=== PATIENT | male | born 2000 | race Two or more races ===

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

== ENCOUNTER → 2021-08-09 | Emergency (ER) | payer BC, MEDICAID ==
[~2021-08-09] VITALS: Ht 177.8 cm; Wt 63.6 kg
[~2021-08-09] MED LIST changes: +BUSP10TA3 PO; +CITA20TA28 PO; +LORazepam 1 MG tablet PO ONE; -ONDA4TAB6 PO
[2021-08-09 06:50] VITALS: BP 118/76
== END | disposition home or self-care (01) ==
LOC: ER 04:17
DX: F41.9 Anxiety disorder, unspecified (principal); F32.A Depression, unspecified; F12.10 Cannabis abuse, uncomplicated; Z79.899 Other long term (current) drug therapy
CPT/HCPCS: 71045; 99283

== ENCOUNTER 2021-08-10 19:23 | Emergency (ER) | payer MEDICAID ==
[~2021-08-10] VITALS: Ht 180.3 cm; Wt 63.6 kg
[~2021-08-10 19:23] MED LIST changes: -LORazepam 1 MG tablet PO ONE
[2021-08-10 19:26] VITALS: BP 144/82
[2021-08-10] MEDS ORDERED: LORazepam 2 mg/ml vial IM ONE (20:40)
== END 2021-08-10 21:22 | disposition home or self-care (01) ==
LOC: ER 19:24
DX: F41.9 Anxiety disorder, unspecified (principal); F32.A Depression, unspecified; F12.90 Cannabis use, unspecified, uncomplicated; Z72.89 Other problems related to lifestyle; Z79.899 Other long term (current) drug therapy
CPT/HCPCS: 96372; 99283; J2060

== ENCOUNTER 2021-08-14 11:40 | Inpatient (IN) | payer MEDICAID ==
[~2021-08-14] VITALS: Ht 177.8 cm; Wt 60.6 kg
[2021-08-14] MEDS ORDERED: acetaminophen 325mg tablet PO PRN (12:25)
[2021-08-14] MEDS ORDERED: mag hydrox/Alum hydrox/simeth 30ml oral suspension PO PRN (12:25)
[2021-08-14] MEDS ORDERED: magnesium hydroxide 30ml (MOM) UD suspension PO PRN (12:25)
[2021-08-14] MEDS ORDERED: loperamide 2mg capsule PO PRN (12:25)
[2021-08-14 12:50] VITALS: BP 129/90
--- NOTE | 2021-08-14 12:57 | NUR ---
Admit note: [facility]35 for DTS and GD. Pt is shaking , pulling his hair out and reporting that he is "scared". He is prescribed Haldol which he believes he overdosed on and now believes he may hurt himself or somebody else. He has not been eating or sleeping. Pt has history of Bipolar and anxiety.
[2021-08-14] MEDS ORDERED: CLON0.1T PO (14:10)
[2021-08-14] MEDS ORDERED: HALO2TAB PO (14:10)
[2021-08-14] MEDS ORDERED: RISP1TAB98 PO (14:18)
[2021-08-14] MEDS ORDERED: HYDR50TA65 PO (14:18)
[2021-08-14] MEDS ORDERED: traZODone 50mg tablet PO PRN (14:25)
[2021-08-14] MEDS ORDERED: hydrOXYzine 25 MG tablet PO PRN (17:05)
--- NOTE | 2021-08-14 19:15 | NUR ---
pt feeling anxious afraid he was having a heart attack. took his vitals showed him his heart rate was 94-97 sats 99%, bp 139/97. talked to him about anxiety being able to do that and withdrawl from medications. he felt like the meds he was on was too much for him plus he used a lot of cannabis as well. talked to him about it interacting with what he was taking. he said he just wants to detox let everything get out of him was talking like he felt he could get by without any medication at all. talked to him about what brought him in he admitted not sleeping for days and feeling manic. he said he felt a rash coming in on him. i asked what about trying atarax for that and I pulled up the medication on phone showed him that it helped with anxiety and the itching said he would try it. pt took it and refused his other meds because he wanted to clear his system out.
[2021-08-14 19:30] VITALS: BP 139/97
--- NOTE | 2021-08-14 19:50 | NUR ---
pt stating he feels weird like he is having a stroke or heart attack again vitals taken bp 139/101, sats 99% heart rate 99. talked with pt stated the atarax hasn't had a chance to kick in yet that he is having a panic or anxiety attack. gave him cool wash cloth for forehead later a very small ice pack he said felt like he was burning up no temperature it was 98.3. we talked above how sleep deprivation can also do that to him. he said i want something to help my serotonin levels then. he said what about melatonin. told him we would call the Dr to see about getting for him.
[2021-08-14] MEDS: cloNIDine 0.1 mg tablet PO SCH (20:00)
[2021-08-14] MEDS: risperiDONE 0.5mg tablet PO SCH (20:00)
[2021-08-14] MEDS ORDERED: haloperidol 1mg tablet PO PRN (21:00)
--- NOTE | 2021-08-14 21:40 | NUR ---
after several calls made to Dr Lock got an order for melatonin for pt by the charge account authorizer.
[2021-08-14] MEDS ORDERED: Melatonin 3mg tablet PO PRN (21:50)
--- NOTE | 2021-08-14 21:55 | NUR ---
went to pharmacy to get the melatonin and then gave it to the pt. he was laying in the chair with feet up on the bed with ice pack back of neck wash cloth over his eyes calm and stating he still felt weird pulsing at right faith of his forehead pointed it out to Rn. talked to him about sleep deprivation and how that could do that and we will see if this helps him get some rest. he said My Mom and Aunt and cousin are on zoloft they love it says it really helps them with the racing thoughts they have. asked him are you having racing thoughts right now and can't shut down to relax. he said yes he was. Talked about the genetic component to family history and how just the right medication can make such a difference for a person that it's no ones fault some families just have a chemical missing they need to help them stabilize their feelings mood etc. we talked about medicines that if working for other family members could work for him as well. He said well maybe I should try Zoloft like my Mom and Aunt. He then said if the Dr ordered it right now I'd take it. We talked about him talking with the Dr about it in the morning and see if he could get some sleep tonight.
[2021-08-14] MEDS: Melatonin 3mg tablet PO PRN (22:04)
--- NOTE | 2021-08-14 23:00 | NUR ---
noted pt laying in the bed resting appears comfortable.
--- NOTE | 2021-08-15 01:06 | NUR ---
resting without changes.
--- NOTE | 2021-08-15 03:35 | NUR ---
pt awoke felt like crud he said asked for me to take his vitals thought he had a fever temp 98.2 heart rate 101, sats @100% and bp 154/64. said he feels nauseous that he gets this off and on since he was 17. said it's been "worse since he OD" and his grandfather found him and revived him when he was 17. he Asked for Tylenol generalized all over aches, again pointed to right [employer] of his head said he smells off and on like something burnt thinks he has a brain tumor or something. Said, he has "tried to get scan's done on his brain etc" as he thinks their is "something wrong with it like a stroke or tumor or shit". talked to hi again about drug with drawl symptoms and effects of drugs on his system. he said he used cocaine 2 weeks ago and admits to cannabis states he has not used meth, fentanyl or heroin. He said he has been off of his Haldol now for 5 days that he was told to take it 4 times a day when he should have only been taking it once a day. pt also stated that "in past he has hallucinated" he is not now but he is "afraid that I will". I told him to let us know if that happens to him. He was glad he got some sleep but was hoping he would feel better than he is right now. Said he," felt so bad when he woke up he thought he was going to pass out".
[2021-08-15] MEDS: acetaminophen 325mg tablet PO PRN ×2 (03:48→20:35)
--- NOTE | 2021-08-15 04:30 | NUR ---
talked to him about trying to let tylenol work and get some rest. Pt able to keep Tylenol down.
--- NOTE | 2021-08-15 06:15 | NUR ---
Marshall came to the nurse to ask when the Doctor was coming in he said he thought he had a neuro plectic thing going on in his head but what he has described with nausea at one point during the night sounded like he had some gastrointestinal issues and he does smoke a lot of cannabis thinking it would help. he also described what sounded like a hypoxic issue after drug overdose at age 17 when he was found by his grandafather and talked about zyprexa working for his Mom and Aunt. also about family history of thyroid issues and his concern of a brain tumor and wanting a ct scan. then said he feels like he is going to or have a seizure.
[2021-08-15 06:50] LABS: CHOL/HDL RATIO 3.7 (0.00-4.99); CHOLESTEROL 143 MG/DL (0-200); HDL CHOLESTEROL 39 MG/DL (35-60); LDL CHOLESTEROL 88 MG/DL (50-100); TRIGLYCERIDES 64 MG/DL (20-135)
[2021-08-15 07:47] VITALS: BP 127/89
[2021-08-15] MEDS: cloNIDine 0.1 mg tablet PO SCH ×2 (07:53→08:00)
[2021-08-15] MEDS: risperiDONE 0.5mg tablet PO SCH ×2 (07:53→08:00)
[2021-08-15] MEDS ORDERED: ESCITALOPRAM OXALATE 5 MG TABLET PO ONE (09:40)
--- NOTE | 2021-08-15 16:26 | NUR ---
Nursing Progress Note: Marshall Problem: Pt admitted to [facility] for DTS and GD. Pt is shaking, pulling his hair out and reporting that he is "scared". He is prescribed Haldol which he believes he overdosed on and now believes he may hurt himself or somebody else. He has not been eating or sleeping. Pt has history of Bipolar and anxiety. Intervention: Medication given as ordered. Provided with a safe and therapeutic environment, clear communication, active listening and positive encouragement. Response: Started on Lexapro today with no adverse side effects observed. Requests to have his vital signs checked frequently. States he is feeling sensations in his head that he believes are from an overdose of Haldol. Patient states his doctor gave him the wrong directions for Haldol resulting in his taking 4 per day instead of 1. States he is feeling scared of taking his AM medication. He then spoke to the provider who changed his medication to Lexapro. Patient then takes it without an issue. Several times during the shift the patient verbalizes worry that he will have a stroke or a seizure. PRN anxiety medication is offered but the patient refuses. Plan: Patient continues to require crisis interruption and stabilization with medication management and monitoring in a safe and therapeutic environment.
[2021-08-15] MEDS: ALPRAZolam 0.25mg tablet PO PRN (19:10)
[2021-08-15 20:00] VITALS: BP 149/107
[2021-08-15 21:09] VITALS: BP 149/107
--- NOTE | 2021-08-16 03:32 | NUR ---
Nursing Progress Note: Marshall Problem: Pt admitted to [facility] for DTS and GD. Pt is shaking, pulling his hair out and reporting that he is "scared". He is prescribed Haldol which he believes he overdosed on and now believes he may hurt himself or somebody else. He has not been eating or sleeping. Pt has history of Bipolar and anxiety. Intervention: Medication given as ordered. Provided with a safe and therapeutic environment, clear communication, active listening and positive encouragement. Response: Patient insists that he is having a heart attack or stroke. We must take him to the ER. He has no symptoms of either. He is given 0.25mg Xanax, then complains it make him feel worse. He has many somatic complaints, but shown so symptoms. Asked him if he would take Ativan to help him relax, but he says it makes him feel weird. So, no to Ativan. Patient complains he's not sleeping. Tell him there is Trazodone ordered, he refuses it. Finally, he takes Tylenol. He goes to bed. Patient awake at ~0330. He again c/o the prior things, but now "my head is burning up inside, my skin is pale white, my eyes are red. Again, "you need to take me to the ER." Told him he'll see a doctor in the morning. Now, he goes in toilet and comes out saying, "there's something wrong with my colon." Shows me toilet paper that supposedly has blood and yellow stuff coming out. I don't see it. Refused anything to help him. Plan: Patient continues to require crisis interruption and stabilization with medication management and monitoring in a safe and therapeutic environment.
[2021-08-16 08:05] VITALS: BP 161/92
[2021-08-16] MEDS: ALPRAZolam 0.25mg tablet PO PRN (08:14)
[2021-08-16] MEDS: ESCITALOPRAM OXALATE 5 MG TABLET PO SCH (08:14)
--- NOTE | 2021-08-16 15:59 | NUR ---
Nursing Progress Note: Marshall Problem: Pt admitted to [facility] for DTS and GD. Pt is shaking, pulling his hair out and reporting that he is "scared". He is prescribed Haldol which he believes he overdosed on and now believes he may hurt himself or somebody else. He has not been eating or sleeping. Pt has history of Bipolar and anxiety. Intervention: Medication given as ordered. Provided with a safe and therapeutic environment, clear communication, active listening and positive encouragement. Response: Patient continues to talk about feeling unusual which he believes to be due to a Haldol overdose. Patient describes taking it 4 times a day instead of 1. Patient also states he was taking clonidine 3 times a day routinely and thinks they may have been meant as PRN. Education is provided on safely taking medications for which the patient verbalizes understanding. Complains of a burning sensation in his head that has persisted for over a week. Provider is aware. Denies any suicidal/ homicidal ideation. Denies any auditory/ visual hallucinations. Patient acknowledges that he excessively worries over his health and appears less anxious after talking about it. Requests an extra shower to ease his anxiety which appears helpful. Plan: Patient continues to require crisis interruption and stabilization with medication management and monitoring in a safe and therapeutic environment.
[2021-08-16 20:00] VITALS: BP 137/82
[2021-08-16] MEDS: Melatonin 3mg tablet PO PRN (22:30)
[2021-08-16] MEDS: acetaminophen 325mg tablet PO PRN (22:34)
--- NOTE | 2021-08-17 03:32 | NUR ---
Nursing Progress Note: Problem: Pt admitted to [facility] for DTS and GD. Pt is shaking, pulling his hair out and reporting that he is "scared". He is prescribed Haldol which he believes he overdosed on and now believes he may hurt himself or somebody else. He has not been eating or sleeping. Pt has history of Bipolar and anxiety. Intervention: Medication given as ordered. Provided with a safe and therapeutic environment, clear communication, active listening and positive encouragement. Response: Patient making fewer somatic complaints tonight. He continues to c/o his head burning up inside. Patient stayed close to his room tonight. He is not demanding to go to ER anymore. He states that his provider has said he will get a head CT. He seems placated by this. Patient was asked if he would utilize Trazodone to help him sleep tonight. He refused it, but said he would try Melatonin. He then went to bed. Patient up at ~0400 c/o burning up in his head. He requested ice pack, then went back to his room. Plan: Patient continues to require crisis interruption and stabilization with medication management and monitoring in a safe and therapeutic environment.
[2021-08-17] MEDS ORDERED: ALPRAZolam 0.25mg tablet PO PRN (07:35)
[2021-08-17] MEDS: ESCITALOPRAM OXALATE 5 MG TABLET PO SCH (07:53)
[2021-08-17] MEDS: nicotine 7mg patch - 24hr TD SCH (07:55)
[2021-08-17] MEDS: propranolol 10mg tablet PO SCH ×3 (07:55→20:49)
[2021-08-17 08:00] VITALS: BP 146/97
[2021-08-17 08:42] LABS: BASOPHILS % (AUTO) 0.3 % (0-1); EOSINOPHILS % (AUTO) 0.3 % (0-6); HEMATOCRIT 41.6 % (42.0-52.0); HEMOGLOBIN 14.2 g/dl (14.0-17.9); LYMPHOCYTES # (AUTO) 1.7 X10'3 (1.1-4.8); LYMPHOCYTES % (AUTO) 24.3 % (21-51); MEAN CORPUSCULAR HEMOGLOBIN 32.2 PG (27.0-31.0); MEAN CORPUSCULAR VOLUME 94.7 FL (78-98); MEAN PLATELET VOLUME 7.5 FL (7.4-10.4); MONOCYTES # (AUTO) 0.4 X10'3 (0-0.9); MONOCYTES % (AUTO) 6.4 % (2-12); NEUTROPHILS # (AUTO) 4.7 X10'3 (1.8-7.7); NEUTROPHILS % (AUTO) 68.7 % (42-75); PLATELET COUNT 223 X10'3 (140-440); RED CELL DISTRIBUTION WIDTH 13.6 % (11.5-14.5); WHITE BLOOD COUNT 6.9 X10'3 (4.5-11.0)
[2021-08-17 09:01] LABS: ALANINE AMINOTRANSFERASE 18 U/L (12-78); ALBUMIN 4.4 G/DL (3.4-5.0); ALBUMIN/GLOBULIN RATIO 1.5 (1.1-1.5); ALKALINE PHOSPHATASE 64 IU/L (20-180); ANION GAP 11 (8-16); BILIRUBIN,TOTAL 0.8 MG/DL (0.1-1.0); BLOOD UREA NITROGEN 13 MG/DL (7-18); BUN/CREATININE RATIO 16.5 (5.4-32.0); CALCIUM 8.9 MG/DL (8.5-10.1); CHLORIDE 101 MMOL/L (99-107); CREATINE KINASE 316 U/L (39-308); CREATININE 0.79 MG/DL (0.60-1.10); GLUCOSE 190 MG/DL (70-104); POTASSIUM 3.3 MMOL/L (3.5-5.1); SODIUM 137 MMOL/L (135-145); TOTAL CARBON DIOXIDE 25.1 MMOL/L (24-32); TOTAL PROTEIN 7.4 G/DL (6.4-8.2); eGFR > 90 ML/MIN
[2021-08-17 09:06] LABS: ASPARTATE AMINO TRANSFERASE 16 U/L (10-37)
--- NOTE | 2021-08-17 16:00 | NUR ---
Nursing Progress Note: Marshall Problem: Pt admitted to [facility] for DTS and GD. Pt is shaking, pulling his hair out and reporting that he is "scared". He is prescribed Haldol which he believes he overdosed on and now believes he may hurt himself or somebody else. He has not been eating or sleeping. Pt has history of Bipolar and anxiety. Intervention: Medication given as ordered. Provided with a safe and therapeutic environment, clear communication, active listening and positive encouragement. Response: Patient continues to complain of a burning feeling in his head as well as LLQ pain. Provider is aware and gives new orders for labs, stool sample and head CT. Stool sample is collected which is hard. MOM given. Patient appears paranoid about his health and frequently requests to have his blood pressure taken. Paces the unit with a washcloth on his head. Denies any suicidal/ homicidal ideation or hallucinations. Plan: Patient continues to require crisis interruption and stabilization with medication management and monitoring in a safe and therapeutic environment.
[2021-08-17] MEDS: ALPRAZolam 0.5mg tablet PO PRN (17:13)
[2021-08-17 19:36] VITALS: BP 137/89
[2021-08-17] MEDS: Melatonin 3mg tablet PO PRN (20:49)
--- NOTE | 2021-08-18 01:04 | NUR ---
Nursing Progress Note: Marshall Problem: Pt admitted to [place] for DTS and GD. Pt is shaking, pulling his hair out and reporting that he is "scared". He is prescribed Haldol which he believes he overdosed on and now believes he may hurt himself or somebody else. He has not been eating or sleeping. Pt has history of Bipolar and anxiety. Intervention: Medication given as ordered. Provided with a safe and therapeutic environment, clear communication, active listening and positive encouragement. Response: Patient anxious when arrived on the unit. Patient was concerned over CT results. Patient asked to have his BP taken due to anxiety. Patient then went to sit in rec room with cohorts and was seen laughing and joking. Patient later states that he had Xanax earlier and feels better. Patient then requests to have evening meds be given later. Patient ate snack and took evening meds w/o complications. Patient reports taking off nicotine patch off earlier due to trying to quit nicotine cold turkey. Patient went to sleep shortly after. Plan: Patient continues to require crisis interruption and stabilization with medication management and monitoring in a safe and therapeutic environment.
[2021-08-18 07:16] LABS: ALBUMIN 4.1 G/DL (3.4-5.0); ANION GAP 5 (8-16); BLOOD UREA NITROGEN 11 MG/DL (7-18); BUN/CREATININE RATIO 13.8 (5.4-32.0); CALCIUM 8.9 MG/DL (8.5-10.1); CHLORIDE 107 MMOL/L (99-107); GLUCOSE 89 MG/DL (70-104); POTASSIUM 4.1 MMOL/L (3.5-5.1); SODIUM 139 MMOL/L (135-145); TOTAL CARBON DIOXIDE 27.1 MMOL/L (24-32); eGFR > 90 ML/MIN
--- NOTE | 2021-08-18 07:19 | NUR ---
Initial: Pt admitted w/ generalized anxiety disorder per EMR. Currently on Regular diet w/ avg intake ~80% of meals and participates in snacks per documentation, overall meeting needs at this time. LBM 08/17 receiving PRN bowel care. No nutrition intervention implemented at this time, will continue to monitor. Recs: 1. Continue Regular diet as tolerated 2. Bowel care PRN 3. Weekly wts Addendum: 08/18/21 at [address] Amended: Links added.
[2021-08-18] MEDS: nicotine 7mg patch - 24hr TD SCH ×3 (07:39→08:00)
[2021-08-18] MEDS: propranolol 10mg tablet PO SCH ×3 (07:39→20:18)
[2021-08-18] MEDS: ESCITALOPRAM OXALATE 5 MG TABLET PO SCH (07:39)
[2021-08-18 08:00] VITALS: BP 137/86
[2021-08-18] MEDS ORDERED: ESCITALOPRAM OXALATE 5 MG TABLET PO SCH (08:00)
[2021-08-18] MEDS ORDERED: ESCITALOPRAM OXALATE 5 MG TABLET PO ONE (08:00)
[2021-08-18] MEDS: ALPRAZolam 0.5mg tablet PO PRN (11:02)
--- NOTE | 2021-08-18 16:59 | NUR ---
Nursing Progress Note: Marshall Problem: Pt admitted to [place] [facility] for DTS and GD. Pt is shaking, pulling his hair out and reporting that he is "scared". He is prescribed Haldol which he believes he overdosed on and now believes he may hurt himself or somebody else. He has not been eating or sleeping. Pt has history of Bipolar and anxiety. Intervention: Medication given as ordered. Provided with a safe and therapeutic environment, clear communication, active listening and positive encouragement. Response: Patient is cooperative with assessment and medications. Lexapro increased per MD order. No adverse side effects noted. After meeting with the doctor and discussing his test results the patient states, I guess it is just panic. I cant believe that. It felt like I was going to . Patient paces the halls but does not complain about his head hurting or hold a washcloth on his head as he has the past few days. Patient denies any SI/ HI or hallucinations. Continues to make paranoid statements about his health concerns. Plan: Patient continues to require crisis interruption and stabilization with medication management and monitoring in a safe and therapeutic environment.
[2021-08-18 20:00] VITALS: BP 119/77
--- NOTE | 2021-08-18 23:46 | NUR ---
Nursing Progress Note: Marshall Problem: Pt admitted to [place] [facility] for DTS and GD. Pt is shaking, pulling his hair out and reporting that he is "scared". He is prescribed Haldol which he believes he overdosed on and now believes he may hurt himself or somebody else. He has not been eating or sleeping. Pt has history of Bipolar and anxiety. Intervention: Medication given as ordered. Provided with a safe and therapeutic environment, clear communication, active listening and positive encouragement. Response: Patient is cooperative with assessment and medications. Pt observed in the rec room watching TV with peers. Pt came to this RN about some paranoid health concerns and wanted his BP checked again because he felt really hot. Pts BP was normal 119/77. Pt in the snack room with peers laughing and joking around, pt took all HS medications and then went to bed shortly after. No other complaints noted. Pt denies MH symptoms at this time. Plan: Patient continues to require crisis interruption and stabilization with medication management and monitoring in a safe and therapeutic environment.
[2021-08-19 07:20] VITALS: BP 133/85
[2021-08-19] MEDS: propranolol 10mg tablet PO SCH ×3 (09:49→21:15)
[2021-08-19] MEDS: ESCITALOPRAM OXALATE 5 MG TABLET PO SCH (09:49)
[2021-08-19] MEDS: ALPRAZolam 0.5mg tablet PO PRN ×2 (12:05→21:34)
--- NOTE | 2021-08-19 12:06 | NUR ---
PRNs Administered: Xanax 0.5mg Interventions Offered: Pt. reported anxiety, stated, "I need medication, I think I'm going into a panic attack." This development writer provided active listening and a quiet environment, along with medication. Response to Medication: Pt. thanked this development writer for the medication, will continue to monitor closely.
--- NOTE | 2021-08-19 17:49 | NUR ---
Nursing Progress Note: Problem: Patient was admitted on 08/14/21 to [facility] on a DTS/GD on a 5150, which is now changed to a Voluntary. Pt is shaking, pulling his hair out and reporting that he is "scared". He is prescribed Haldol which he believes he overdosed on and now believes he may hurt himself or somebody else. He has not been eating or sleeping. Patient is admitted with Generalized Anxiety, Obsessive Compulsive Disorder, reports feeling scared, and was pulling his hair out. Intervention: Patient awake early then fell asleep in his bed. Patient not awake for his prescribed medications until later in the morning. Patient Assessment and 1:1 Patient Interview completed after patient woke up. Patient is visiting with peers in the Community Room much of the morning. Patient was invited to Group Meeting at 11:00 am. Medications were administered to patient without hesitancy. Response: Patient was pleasant, cooperative and appear much more relaxed than previous days. Patient shared that he dropped out of high school, and has been living with his grandparents. Patient reports My head feels really strange today. When asked to describe in detail how his head was feeling, the patient stated I cant really describe it any more than that. Patient did not attend the Group Meeting, but fell asleep on his bed during this time. Patient received an increase to his Lexapro from 5mg to 10mg this morning. Patient c/o anxiety at 1200 and received a dose of Xanax for anxiety, and reported A decrease in my anxiety level. Patient spent the afternoon with peers in the Community Room and ambulating in the hallway. Plan: Patient continues to require crisis interruption and stabilization with medication management and monitoring in a safe and therapeutic environment. Per Dr. Lock if condition continues to improve today, he will move forward with discharge planning.
[2021-08-19 20:00] VITALS: BP 139/89
[2021-08-19] MEDS: Melatonin 3mg tablet PO PRN (22:53)
[2021-08-19] MEDS: acetaminophen 325mg tablet PO PRN (22:53)
--- NOTE | 2021-08-20 01:40 | NUR ---
Nursing Progress Note: Problem: Pt admitted to [facility] [facility] for [facility] for DTS and GD. Pt is shaking, pulling his hair out and reporting that he is "scared". He is prescribed Haldol which he believes he overdosed on and now believes he may hurt himself or somebody else. He has not been eating or sleeping. Pt has history of Bipolar and anxiety. Intervention: Medication given as ordered. Provided with a safe and therapeutic environment, clear communication, active listening and positive encouragement. Response: Patient is pleasant and cooperative with care; compliant with medication. PRN Xanax, Melatonin and Tylenol provided this shift. Patient denies SI, HI, A/VH; no apparent delusions expressed. Patient mostly isolative to room but briefly out during HS snack. Observed sleeping and does not appear to be having difficulty. Plan: Patient continues to require crisis interruption and stabilization with medication management and monitoring in a safe and therapeutic environment.
[2021-08-20 07:35] VITALS: BP 133/76
[2021-08-20] MEDS: propranolol 10mg tablet PO SCH ×2 (08:20→13:00)
[2021-08-20] MEDS: ESCITALOPRAM OXALATE 5 MG TABLET PO SCH (08:20)
[2021-08-20] MEDS: ALPRAZolam 0.5mg tablet PO PRN (09:17)
--- NOTE | 2021-08-20 09:34 | NUR ---
DISCHARGE PLAN Marshall is discharging today and returning to his grandparent's home. He has follow up schedule with Dr Lock at [facility]. [facility] passenger coach driver can pick him up at 3:30 PM to transport him home. TAAR Simmons
[2021-08-20] MEDS ORDERED: hydrOXYzine 25 MG tablet PO ONE (12:40)
[2021-08-20] MEDS ORDERED: HYDR-3686 PO (12:45)
[2021-08-20] MEDS ORDERED: ESCI-8 PO (12:45)
[2021-08-20] MEDS ORDERED: TRAZ-251 PO (12:45)
[2021-08-20] MEDS ORDERED: ALPR0.5T9 PO (12:45)
[2021-08-20] MEDS ORDERED: PROP10TA10 PO (12:45)
--- NOTE | 2021-08-20 14:55 | NUR ---
DISCHARGE NOTE: Pt. discharged to home, picked up by pt.'s mother and driven in car. RN went through discharge paper work with pt., pt. verbalized understanding and signed all paperwork including discharge medications, f/u plan, gun notification, and crisis phone numbers including 911. Pt. denies SI/HI, A/V hallucinations, is A&Ox4, and in no apparent distress. Pt. discharged with all belongings and valuables.
== END 2021-08-20 14:55 | disposition home or self-care (01) | DRG 755 ==
LOC: ADULT MH 11:40
PROVIDERS: ADMIT Psychiatry & Neurology Psychiatry; ATTEND Psychiatry & Neurology Psychiatry
DX: F42.9 Obsessive-compulsive disorder, unspecified (principal); E87.6 Hypokalemia; F10.21 Alcohol dependence, in remission; F41.0 Panic disorder [episodic paroxysmal anxiety]; F43.10 Post-traumatic stress disorder, unspecified; F41.1 Generalized anxiety disorder; F12.20 Cannabis dependence, uncomplicated; R51.9 Headache, unspecified; F14.20 Cocaine dependence, uncomplicated; F17.210 Nicotine dependence, cigarettes, uncomplicated; K59.00 Constipation, unspecified; Z81.8 Family history of other mental and behavioral disorders; Z71.6 Tobacco abuse counseling; Z79.899 Other long term (current) drug therapy
CPT/HCPCS: 36415; 70450; 80048; 80053; 80061; 82550; 83036; 85025; 87081; 89055; Q0177

== ENCOUNTER 2021-10-06 12:41 | Emergency (ER) | payer MEDICAID ==
[~2021-10-06] VITALS: Ht 177.8 cm; Wt 65.9 kg
[~2021-10-06 12:41] MED LIST changes: +ALPR0.5T9 PO; -BUSP10TA3 PO; -CITA20TA28 PO; +ESCI-8 PO; +HYDR-3686 PO; +PROP10TA10 PO; +TRAZ-251 PO
[2021-10-06 12:46] VITALS: BP 127/78
[2021-10-06 13:33] LABS: CLARITY,URINE CLEAR (Clear); COLOR,URINE YELLOW (Yellow); GLUCOSE, URINE NEGATIVE (Neg); KETONES,URINE NEGATIVE (Neg); LEUKOCYTE ESTERASE ,URINE NEGATIVE (Neg); NITRITES, URINE NEGATIVE (Neg); OCCULT BLOOD,URINE TRACE-INTACT (Neg); PH,URINE 5.5 (4.8-8.0); PROTEIN,URINE NEGATIVE (Neg); UROBILINOGEN,URINE 0.2 E.U/dL (0.2-1.0)
[2021-10-06 13:36] LABS: UA COLLECTION TYPE VOIDED
[2021-10-06 13:47] LABS: WBC,URINE 20-30 /HPF (0-4)
[2021-10-06 13:48] LABS: BACTERIA,URINE FEW /HPF (Neg); MUCUS STRANDS FEW /LPF (Neg); RBC,URINE 0-2 /HPF (0-2); SQUAMOUS EPITHELIAL CELL,UR NONE SEEN /LPF (FEW); WBC CLUMPS,URINE FEW /HPF (NEGATIVE)
[2021-10-06] MEDS ORDERED: CIPR-202 PO (14:09)
== END 2021-10-06 14:51 | disposition home or self-care (01) ==
LOC: ER 12:42
DX: N39.0 Urinary tract infection, site not specified (principal); F12.90 Cannabis use, unspecified, uncomplicated
CPT/HCPCS: 36415; 81001; 87088; 87491; 99283

== ENCOUNTER 2023-01-29 10:38 | Emergency (ER) | payer MEDICAID ==
[~2023-01-29] VITALS: Ht 177.8 cm; Wt 81.8 kg
[2023-01-29 10:40] VITALS: BP 144/93; PULSE 91; TEMP 97.4; O2SAT 98
[2023-01-29] MEDS ORDERED: HYDROcodone/acetaminophen 5mg/325mg tablet PO ONE (10:50)
[2023-01-29] MEDS ORDERED: LIDOcaine 1%/PF 5ML 10 MG/ML VIAL IM ONE (10:50)
[2023-01-29 12:11] VITALS: RESP 18
[2023-01-29] MEDS ORDERED: IBUP-1984 PO (12:11)
[2023-01-29] MEDS ORDERED: HYDR-3965 PO (12:11)
== END 2023-01-29 12:14 | disposition home or self-care (01) ==
LOC: ER 10:39
DX: K00.6 Disturbances in tooth eruption (principal); K08.89 Other specified disorders of teeth and supporting structures; F32.9 Major depressive disorder, single episode, unspecified; F41.9 Anxiety disorder, unspecified; F12.90 Cannabis use, unspecified, uncomplicated; Z72.89 Other problems related to lifestyle; Z79.899 Other long term (current) drug therapy
CPT/HCPCS: 64400; 99283; 99284

== ENCOUNTER 2024-01-11 09:18 | Emergency (ER) | payer MEDICAID ==
[~2024-01-11] VITALS: Ht 180.3 cm; Wt 79.5 kg
[2024-01-11 09:22] VITALS: TEMP 98.5
[2024-01-11] MEDS ORDERED: DIAZ5TAB PO (10:29)
[2024-01-11] MEDS: diazepam 5mg tablet PO ONE (10:32)
[2024-01-11 10:40] VITALS: BP 137/87; PULSE 73; RESP 18; O2SAT 98
== END 2024-01-11 10:42 | disposition home or self-care (01) ==
LOC: ER 09:18
DX: F41.9 Anxiety disorder, unspecified (principal); F32.A Depression, unspecified; F12.90 Cannabis use, unspecified, uncomplicated; Z79.899 Other long term (current) drug therapy
CPT/HCPCS: 99283

== ENCOUNTER 2024-11-06 08:21 | Emergency (ER) | payer MEDICAID ==
[~2024-11-06] VITALS: Ht 182.9 cm; Wt 81.5 kg
[~2024-11-06 08:21] MED LIST changes: +DIAZ5TAB PO
[2024-11-06 08:24] VITALS: BP 130/79; PULSE 98; RESP 16; O2SAT 99
--- NOTE | 2024-11-06 08:49 | Physician Documentation ---
History of Present Illness ~ Chief Complaint: Flu Symptoms Stated Complaint: FLU SYMPTOMS Time Seen by MD: 08:48 Primary Medical Doctor: maria esther WADSWORTH 24-year-old male presenting with flu-like symptoms He tells me that over the past 2-3 days he has had multiple symptoms. He reports having fevers, malaise, congestion, nonproductive cough, sore throat. No vomiting or diarrhea. No abdominal pain. He has been around multiple people with viral type symptoms. No other acute concerns. Medication Reconciliation Allergies: Coded Allergies: No Known Allergies (Unverified , 11/06/24) Scheduled Escitalopram Oxalate (Escitalopram Oxalate), 1 TAB PO DAILY Propranolol Hcl* (Inderal*), 10 MG PO TID Scheduled PRN Alprazolam (Alprazolam), 0.5 MG PO BID PRN for anxiety Diazepam (Valium), 1 TAB PO DAILY PRN for muscle spasms Hydroxyzine Hcl (Atarax), 25 MG PO TID PRN for anxiety Trazodone HCl (Trazodone HCl), 50 MG PO HS PRN for sleep Past Medical History Past Medical History: Anxiety, Depression Past Surgical History: noncontributory Alcohol Use: Occasionally Drug Use: marijuana Lives with: Mother, Father Lives In: Home Review of Systems Constitutional: Denies: fever ENT: Reports: nose congestion Respiratory: Reports: cough Gastrointestinal: Denies: vomiting Physical Exam Vital Signs: Temperature: 99.0, Source: Oral, Heart Rate: 98, Respiratory Rate: 16, BP: 130/79, Pulse Oximetry: 99, Weight: 81.500 Oxygen Flow Rate: 0 Physical Exam General: This is a healthy-appearing young man, partner at bedside HEENT: Atraumatic, oropharynx is moist, no significant posterior oropharyngeal erythema, unilateral swelling or white exudate. Tympanic membranes are calloway and nonbulging bilateral Heart: Mild tachycardic, appears regular Lungs: Clear breath sounds bilateral, no wheezing or crackles, normal work of breathing, normal oxygen saturation on room air Abdomen: Soft, nondistended, nontender all quadrants Neuro: Alert and oriented Psychiatric: Calm and cooperative with exam Progress Results/Orders Results/Orders Vital Signs 11/06/24 08:24 Temp 99.0 Pulse 98 Resp 16 B/P (MAP) 130/79 Pulse Ox 99 O2 Flow Rate 0 Medical Decision Making Differential Dx:Considerations: Include: Influenza, Otitis media, Peritonsillar abscess, Pharyngitis-Viral, Pneumonia, URI Differential Diagnosis 24-year-old male presenting with flu-like symptoms. Per his history and exam, he has a viral upper respiratory illness. No evidence of infection requiring antibiotics including no evidence of strep throat or otitis media or pneumonia. He will be discharged with symptomatic treatment. Departure Time of Disposition: 09:12 Disposition: 01 HOME / SELF CARE / HOMELESS Impression: Primary Impression: Viral URI with cough Condition: Stable Discharge Instructions: Viral Illness Referrals: NO PRIMARY CARE PROVIDER (PCP) Education Educated: Patient Educated regarding: diagnosis, treatment, need for follow up Signature Scribe Signature: na Attestation: JT Wiley MD Nov 06, 2024 08:49
[2024-11-06 09:20] VITALS: TEMP 99
== END 2024-11-06 09:21 | disposition home or self-care (01) ==
LOC: ER 08:22
DX: J06.9 Acute upper respiratory infection, unspecified (principal); R05.9 Cough, unspecified; F41.9 Anxiety disorder, unspecified; F32.A Depression, unspecified; F12.90 Cannabis use, unspecified, uncomplicated; Z72.89 Other problems related to lifestyle; Z79.899 Other long term (current) drug therapy
CPT/HCPCS: 99282

== ENCOUNTER 2025-01-11 00:30 | Emergency (ER) | payer MEDICAID | END 2025-01-11 01:28 | disposition left against medical advice (07) | LOC: ER 00:31 | DX: Z00.8 Encounter for other general examination (principal) ==